=== PATIENT | female | born 1955 | race Caucasian/White ===

== ENCOUNTER 2023-12-19 08:00 | Outpatient (CLI) | payer MEDICARE, OTHER | END 2023-12-19 08:01 | disposition home or self-care (01) | LOC: LAB.S 08:00 | PROVIDERS: ATTEND Physician Assistant Medical | DX: J20.9 Acute bronchitis, unspecified (principal) ==

== ENCOUNTER 2024-02-17 14:02 | Outpatient (CLI) | payer MEDICARE, OTHER | END 2024-02-17 14:03 | disposition home or self-care (01) | LOC: LAB.S 14:02 | PROVIDERS: ATTEND Physician Assistant | DX: R79.82 Elevated C-reactive protein (CRP) (principal) | CPT/HCPCS: 36415; 86141 ==